=== PATIENT | male | born 1955 | race Caucasian/White ===

== ENCOUNTER 2018-11-15 09:11 | Observation (INO) | payer OTHER ==
--- NOTE | 2018-11-15 06:17 | PDHPUP ---
History & Physical Update H&P update statement: This history and physical update is based on an assessment of the patient which was completed after admission or registration (within 24 hours), but prior to the surgery/procedure. H&P update: H&P reviewed & patient examined, no change in patient's condition since H&P completed
--- NOTE | 2018-11-15 08:13 | PDANEPAE ---
ANE History of Present Illness cervical stenosis ANE Past Medical History - Cardiovascular History Hx Hypertension: Yes Hx Arrhythmias: No Hx Chest Pain: No Hx Coronary Artery / Peripheral Vascular Disease: No Hx CHF / Valvular Disease: No Hx Palpitations: No - Pulmonary History Hx COPD: No Hx Asthma/Reactive Airway Disease: No Hx Recent Upper Respiratory Infection: No Hx Oxygen in Use at Home: No Hx Sleep Apnea: No Sleep Apnea Screening Result - Last Documented: Positive - Neurologic History Hx Cerebrovascular Accident: No Hx Seizures: No Hx Dementia: No - Endocrine History Hx Diabetes: No Hypothyroid: No Hyperthyroid: No Obesity: no - Renal History Hx Renal Disorders: No - Liver History Hx Hepatic Disorders: No - Neurological & Psychiatric Hx Hx Neurological and Psychiatric Disorders: Yes Neurological / Psychiatric History Comment: pain radiates to shoulder and elbow. numbness/tingling left arm - Cancer History Hx Cancer: Yes Cancer History Comment: prostate - Congenital Disorder History Hx Congenital Disorders: No - GI History GERD: mild Hx Gastrointestinal Disorders: Yes Gastrointestinal History Comment: acid reflux - Other Health History Other Health History: none - Chronic Pain History Chronic Pain: No - Surgical History Prior Surgeries: none ANE Review of Systems Review of systems is: negative Review of Systems: - Exercise capacity Exercise capacity: >=4 METS METS (RN): 4 METS ANE Patient History - Allergies Allergies/Adverse Reactions: adhesive tape Allergy (Verified 11/06/18 17:10) Other-Enter Comments latex [Latex] Allergy (Verified 12/29/17 16:19) Hives - Home Medications Home medications: home medication list seen and reviewed Home Medications: Gabapentin [Neurontin 300 MG (*)] 600 mg PO TID@09,12,18 12/29/17 [Last Taken Unknown] Lisinopril [Zestril 10 mg (*)] 10 mg PO HS 12/29/17 [Last Taken Unknown] oxyCODONE/APAP 5/325 [Percocet 5/325 (*)] 1 tab PO QID 12/29/17 [Last Taken Unknown] Atorvastatin Calcium [Lipitor 20 mg (*)] 20 mg PO DAILY 11/03/18 [Last Taken Unknown] Gabapentin [Neurontin 300 MG (*)] 900 mg PO HS 11/03/18 [Last Taken Unknown] Herbals/Supplements -Info Only 1 ea PO DAILY 11/03/18 [Last Taken Unknown] MIRTAZAPINE [Remeron 7.5 mg] 15 mg PO HS 11/03/18 [Last Taken Unknown] - NPO status NPO Status: no food or drink >8 hours - Anes Hx Anes Hx: post operative nausea and vomiting - Smoking Hx Smoking Status: Never smoked - Family Anes Hx Family Hx Anesthesia Complications: none ANE Labs/Vital Signs - Vital Signs Height: 175.26 cm Weight: 79.379 kg ANE Physical Exam - Airway Neck exam: FROM Mallampati Score: Class 3 Mouth exam: normal dental/mouth exam - Pulmonary Pulmonary: no respiratory distress - Cardiovascular Cardiovascular: regular rate and rhythym - ASA Status ASA Status: II ANE Anesthesia Plan Anesthesia Plan: general endotracheal anesthesia
[~2018-11-15 09:11] MED LIST: BACITRACIN 50,000 UNITS/10 ML SYR IRR ONE; BUPIVACAINE/EPI 0.25% 30 ML SDV ONE; CHLORHEXIDINE GLUC HIBICLENS 118 ML BTL TP ONE; MIDAZOLAM 2 MG/2 ML VIAL IVP ONE; THROMBIN (BOVINE) 5,000 UNIT VIAL TP ONE
[2018-11-15] MEDS ORDERED: PROPOFOL/EMULSION 500 MG/50 ML BOTTLE IV ONE ×3 (09:45→12:39)
[2018-11-15] MEDS ORDERED: PROPOFOL 200 MG/20 ML VIAL ONE ×3 (09:45→11:50)
[2018-11-15] MEDS ORDERED: ROCURONIUM 50 MG/5 ML VIAL ONE (09:48)
[2018-11-15] MEDS ORDERED: LIDOCAINE 2% 5 ML SDV ONE (09:49)
[2018-11-15] MEDS ORDERED: GABAPENTIN 300 MG CAP PO ONE (10:00)
[2018-11-15] MEDS ORDERED: ACETAMINOPHEN 500 MG TAB PO ONE (10:00)
[2018-11-15] MEDS ORDERED: ceFAZolin 2 GM/DEXTROSE 100 ML IV ONE (10:00)
[2018-11-15] MEDS ORDERED: LR 1,000 ML IV ONE (10:02)
[2018-11-15] MEDS ORDERED: LIDOCAINE 1% 2 ML INJ ID PRN (10:05)
[2018-11-15] MEDS ORDERED: HYDROmorphONE/DILAUDID 1 MG/ML INJ IVP PRN (10:15)
[2018-11-15] MEDS ORDERED: diphenhydrAMINE 25 MG CAP PO PRN (10:15)
[2018-11-15] MEDS ORDERED: NS 1,000 ML IV SCH (10:15)
[2018-11-15] MEDS ORDERED: POLYETHYLENE GLYCOL 3350 17 GM PKT PO PRN (10:15)
[2018-11-15] MEDS ORDERED: MAGNESIUM HYDROXIDE 30 ML UDCUP PO PRN (10:15)
[2018-11-15] MEDS ORDERED: ONDANSETRON DISINTEGRATING 4 MG TAB PO PRN (10:15)
[2018-11-15] MEDS ORDERED: LACTULOSE 20 GM/30 ML UDCUP PO PRN (10:15)
[2018-11-15] MEDS ORDERED: ONDANSETRON 4 MG/2 ML VIAL IVP PRN ×2 (10:15→12:00)
[2018-11-15] MEDS ORDERED: METHOCARBAMOL 750 MG TAB PO PRN (10:15)
[2018-11-15] MEDS ORDERED: BISACODYL 10 MG SUPP PR PRN (10:15)
[2018-11-15] MEDS ORDERED: MIDAZOLAM 2 MG/2 ML VIAL ONE (10:17)
[2018-11-15] MEDS ORDERED: SCOPOLAMINE HYDROBROMIDE 1 MG/3 DAYS PATCH TD ONE ×2 (10:19→10:23)
[2018-11-15] MEDS ORDERED: fentaNYL 100 MCG/2 ML INJ ONE ×2 (10:26→11:07)
[2018-11-15] MEDS ORDERED: ePHEDrine SULFATE 25 MG/5 ML SYR ONE (10:52)
[2018-11-15] MEDS ORDERED: PHENYLEPHRINE HCL 100 MCG/ML SYR ONE ×2 (10:52→12:46)
[2018-11-15] MEDS ORDERED: ONDANSETRON 4 MG/2 ML VIAL ONE (11:18)
[2018-11-15] MEDS ORDERED: DEXAMETHASONE 4 MG/ML VIAL ONE (11:18)
[2018-11-15] MEDS ORDERED: DEXAMETHASONE 4 MG/ML VIAL IVP PRN (12:00)
[2018-11-15] MEDS ORDERED: METOCLOPRAMIDE 10 MG/2 ML VIAL IVP PRN (12:00)
[2018-11-15] MEDS ORDERED: LR 500 ML IV PRN (12:00)
[2018-11-15] MEDS ORDERED: PHENYLEPHRINE HCL 100 MCG/ML SYR IVP PRN (12:00)
[2018-11-15] MEDS ORDERED: fentaNYL 100 MCG/2 ML INJ IVP PRN (12:00)
[2018-11-15] MEDS ORDERED: oxyCODONE IR 5 MG TAB PO PRN (12:00)
[2018-11-15] MEDS ORDERED: PROMETHAZINE HCL 25 MG/ML INJ IVP PRN (12:00)
[2018-11-15] MEDS ORDERED: NALOXONE HCL 0.4 MG/ML INJ IVP PRN (12:00)
[2018-11-15] MEDS ORDERED: ALBUTEROL 3 ML DEYVIAL IH PRN (12:00)
[2018-11-15] MEDS ORDERED: MEPERIDINE 25 MG/0.5 ML AMP IVP PRN (12:00)
[2018-11-15] MEDS ORDERED: LABETALOL HCL 5 MG/ML 20 ML MDV IVP PRN (12:00)
--- NOTE | 2018-11-15 14:06 | POSTOPPROG ---
Post Op Note Date of Operation: 11/15/18 Surgeon: Vandana Chaidez Chief Building Inspector: SOCORRO Sandoval Anesthesiologist: MD Karley Anesthesia: GET(General Endotracheal), Local (Specify) Pre-op Diagnosis: cervical stenosis C6/7 Post-op Diagnosis: cervical stenosis C6/7 Indication: UE pain, stenosis on MRI, ASD Procedure: removal of hardware at C6 with new ACDF C6/7 Findings: see op report Inf/Abcess present in the surg proc area at time of surgery?: No Depth: Deep Incisional (Fascial) EBL: 50-100 Total fluids administered: see anesthesia record Complications: none Bowel Protocol: Yes Clean Closure Performed: Yes
--- NOTE | 2018-11-15 14:09 | SOAPPROG ---
SOAP Progress Note Assessment/Plan: Post Op Visit: S: Awake and alert. Pt with some expected neck pain. O: AFVSS/PERRLA/EOMI no droop CN 2-12 grossly intact +lt touch 5/5 BUE/BLE = CDI A/P: 62 yo male that is s/p removal of hardware at C6 with new ACDF C6/7 -orders in place -collar at all times -post op xrays pending in am -PT/OT/ST ordered -warning signs given -pt seen by Dr Chaidez as well Objective: Vital Signs Temp Pulse Resp BP Pulse Ox 36.9 C 60 9 L 131/88 H 94 11/15/18 10:06 11/15/18 10:06 11/15/18 10:06 11/15/18 10:06 11/15/18 10:06 ICD10 Worksheet Patient Problems: Problems Problem Status Onset Cervical stenosis of spine Acute Fusion of spine of cervical region Acute - ICD10 Problem Qualifiers (1) Cervical stenosis of spine (2) Fusion of spine of cervical region
[2018-11-15] MEDS ORDERED: HYDROmorphONE/DILAUDID 1 MG/ML INJ ONE (14:32)
[2018-11-15] MEDS: HYDROmorphONE/DILAUDID 1 MG/ML INJ IVP PRN ×3 (14:34→15:23)
--- NOTE | 2018-11-15 15:11 | POSTANESTH ---
Post Anesthetic Evaluation Cardiovascular Status: Normal, Stable Respiratory Status: Normal, Stable Level of Consciousness/Mental Status: Can Participate in Eval Pain Control: Adequate, Prn Tx Ordered Nausea/Vomiting Control: Adequate, Prn Tx Ordered Complications Possibly Related to Anesthesia: None Noted
[2018-11-15] MEDS: ATORVASTATIN CALCIUM 20 MG TAB PO SCH (15:17)
[2018-11-15] MEDS: GABAPENTIN 300 MG CAP PO SCH ×3 (15:17→18:16)
[2018-11-15] MEDS: ACETAMINOPHEN 500 MG TAB PO SCH ×2 (15:21→22:05)
[2018-11-15] MEDS: oxyCODONE IR 5 MG TAB PO PRN ×3 (15:39→19:57)
--- NOTE | 2018-11-15 15:59 | GOP ---
[f rep st] OPERATIVE REPORT DATE OF OPERATION: 11/15/2018 SURGEON: Renetta Chaidez MD NEUROSURGEON: Renetta Chaidez MD BACK END DEVELOPER: Manish Sandoval PA-C PREOPERATIVE DIAGNOSIS: Cervical spondylosis with left greater than right cervical radiculopathy, C6 -7 cervical stenosis. POSTOPERATIVE DIAGNOSIS: Cervical spondylosis with left greater than right cervical radiculopathy, C 6-7 cervical stenosis. PROCEDURE PERFORMED: Removal anterior cervical hardware at C6, anterior cervical diskectomy with dec ompression and fusion C6-7 (07524), placement of biomechanical intervertebral device C6-7 (24123), sa me-incision bone graft harvest, microscope, anterior cervical instrumentation C6-7 (69810). FINDINGS: ESTIMATED BLOOD LOSS: 25 cc. INDICATIONS: The patient is a middle-aged gentleman with a prior history of a 2-level cervical fusio n at C4-5, C5-6. He later went on to develop symptomatic cervical stenosis at C3-4, and most recentl y had surgery with a single-level ACDF at that level. These were both successful surgeries, but over the last several months, he has developed increasing symptoms on the left in the C7 distribution, an d an MRI demonstrated compression of the exiting C7 nerve root. I suggested a single-level ACDF at C 6-7, and we discussed partial removal of the plate and hardware at C4-5, 5-6. Did not intend to margaret ve all of the plate, but I thought we could remove the inferiormost portion of the plate to allow dang cement of a new plate at C6-7. He had already had 2 prior cervical procedures, and I discussed with him the risk of vocal cord paralysis, dysphagia, esophageal injury, carotid injury, recurrent larynge al nerve injury. He understood these risks and he did want to proceed. He knew there was a chance o f nerve injury and spinal cord injury as well as a possible failure of the surgery to alleviate his s ymptoms, and he wanted to proceed despite those risks. DESCRIPTION OF PROCEDURE: The patient was taken to the operating room, placed in the supine position . General anesthesia was begun. A midline shoulder roll was placed. Care was taken to pad all poin ts of contact. His neck was kept relatively neutral with the occiput extended. Localizing x-ray was taken. He was sterilely prepped and draped in the usual fashion. I did shoot localizing x-rays and was contemplating a left versus right incision. His C4-5, 5-6 surgery been done from the right side . The C3-4 surgery had been done from the left-hand side, and I elected to go on the left-hand side. This would give the greatest distance from the prior surgery at C3-4 down to the new surgical disse ction, and I thought this was the safest approach. He was sterilely prepped and draped. We made a t ransverse incision along the inferior portion of the neck on the left-hand side. The subcutaneous ti ssue was dissected using Bovie cautery down through the platysma. We then used a combination of benjie p and blunt dissection to work our way medial to the sternocleidomastoid and lateral to the strap mus cles down the prevertebral space. The exposure of the prevertebral space was relatively straightforw bryson. When I got to the prevertebral space, however, the esophagus was really pretty firmly adherent to the prior plate at C6, but interestingly, there was significant esophageal adhesions tracking all the way down into the upper thoracic spine. I did begin mobilizing the esophagus in front of T1 and the lower C7 vertebral body which was useful in finding a good plane between the esophagus and the pr evertebral fascia. We were able to mobilize it, but it took considerable time, and we worked our way up to the prior plate. When I got to the plate, I did expose it, and the plate appeared short enoug h that I could put a new plating system at C6-7 without complete removal of the plate already going d own the C6. I was most concerned with placement of a distraction pin and I, therefore, exposed the l eft-sided inferior C6 screw, and we had the Aesculap remover for that screw, and we removed the screw without much difficulty. I did not see a reason to remove the right-sided screw, but we did expose the entire plate at that level. There was significant spondylosis and osteophytosis at C6-7. We dang sandeep a distraction pin in the C7 vertebral body and distracted between C6 and C7. There was not a lot of motion at that level. We incised the C6-7 disk, and under the microscope, we removed the disk an d the cartilaginous endplates completely. We drilled down until we got down close to the posterior l ongitudinal ligament, and then I drilled a large amount of subchondral bone for autologous grafting p urposes, and I had a nice amount of bone for that purpose. I then took a 7 mm lordotic PEEK interver tebral device spacer and sized the space and then, ultimately, chose to get an 8 mm device. We then turned our attention to the decompression itself, and under the operating microscope, we exposed the epidural space and removed the posterior wall of the C6-7 disk and the posterior longitudinal ligamen t. We decompressed from left to right, and we were able to decompress all the way into the right-juan ed neural foramen from our left-sided approach. We did a more extensive decompression ipsilaterally on the left-hand side at C6-7 and decompressed the exiting C7 nerve root all the way out beyond the p edicle of C7. We had a great decompression. There was really no significant bleeding at all during the surgery. The only difficulty we had was mobilization of the esophagus. I had mobilized the esop hagus only where needed, and I was able to get a contralateral decompression at C6-7, but I did not w ant to remove the entire plate because of the problems with the esophagus itself. I did not want to cause injury to it. I, therefore, drilled off the osteophyte coming off C6 above the plate at C6 and then prepped the C7 vertebral body for acceptance of the plate, and I chose a 21 mm plate. I had ro om to mount the screws at both C6 and C7 without complete removal of the prior plate above, but the n ew plate would be sitting on the lip of the old plate. Looking at x-ray and after drilling off the o steophytes, however, this appeared to be really the true location of the ventral vertebral body at C6 , and I was very happy with the fit of the device. We also biased the device slightly to the patient 's left-hand side because of the difficulty with exposures. I was more comfortable not mobilizing th e esophagus further to get the plate perfectly centered. The other reason for this is that it allowe d us to put the plate offset to the left, allowed us to get the screws such that there was a little b it more room for these screws between the inferior lip of the L plate, that they fit together in a to ngue and groove type fashion. I put 2 screws in and shot an x-ray. I was happy with the positioning of the hardware, and I put the 2 remaining screws in. I then locked the screws according to company specification. We then assured there was meticulous hemostasis throughout the dissection and then c losed the incision with interrupted Vicryl sutures in the platysma. We then used interrupted Vicryl sutures in the skin. Steri-Strips were applied. The patient was reversed from anesthesia, extubated , and transferred to recovery room in stable condition. There were no complications. COMPLICATIONS: None. INSTRUMENTATION USED: [employer] 21 mm Zevo plate at C6-7 with an 8 x 16 x 14 anatomic PTC cage packe d with bone autograft. We used 3.5 x 15 mm screws, and they were all locked according to [employer] spe cification. /[id number]/MODL
[2018-11-15] MEDS: ceFAZolin 2 GM/DEXTROSE 100 ML IV SCH (18:53)
[2018-11-15] MEDS: SENNOSIDES/DOCUSATE SODIUM TAB PO SCH (19:52)
[2018-11-15] MEDS: FAMOTIDINE 20 MG TAB PO SCH (19:53)
[2018-11-15] MEDS ORDERED: MIRTAZAPINE 15 MG TAB PO SCH (21:00)
[2018-11-15] MEDS ORDERED: LISINOPRIL 10 MG TAB PO SCH (21:00)
[2018-11-15] MEDS ORDERED: GABAPENTIN 300 MG CAP PO SCH (21:00)
[2018-11-16] MEDS: oxyCODONE IR 5 MG TAB PO PRN ×3 (00:01→09:35)
[2018-11-16] MEDS: ceFAZolin 2 GM/DEXTROSE 100 ML IV SCH (02:48)
[2018-11-16] MEDS: ACETAMINOPHEN 500 MG TAB PO SCH (05:33)
--- NOTE | 2018-11-16 07:34 | NEUSURGPN ---
Date of Surgery: 11/15/18 Post Op Day: 1 Assessment/Plan: Assessment: 62 yo male that is s/p removal of hardware at C6 with new ACDF C6/7 POD #1 Plan: -s/p ACDF C6/7: pt doing well this am with some expected neck pain -swallowing ok -collar-soft in bed and hard collar when out of bed and up/around -post op xrays pending this am -PT/OT/ST pending -call with any questions or concerns -warning signs given -pt seen by Dr Chaidez as well -plan for dc later this am Subjective: Awake and alert. NAD. Eating/drinking and voiding. No f/c/n/v/d. No nielsen/cp/ sob/abd or gu complaints. Objective: AFVSS/PERRLA/EOMI no droop CN 2-12 grossly intact +lt touch 5/5 BUE/BLE = CDI Neuro Check Frequency: per routine Urinary Catheter in Place: No - Physician Discussed Patient with Dr.: Dm Patient Seen by : Dm Neurosurgery Physical Exam - Vitals, I&O, Labs I and O 11/15/18 11/16/18 11/17/18 05:59 05:59 05:59 Intake Total 1775 Output Total 225 Balance 1550 Weight 79.379 kg Intake: Oral (ml) 125 IV Intake (ml) 1150 IV Infused (ml) 500 Ns 1,000 ml @ 75 mls/hr 300 IV CONT JAQUELIN Rx#: [id number] ceFAZolin 2 GM/DEXTROSE 200 100 ml @ 200 mls/hr IV ONCALL ONE Rx#:[id number] Output: Urine (ml) 200 Urinal 200 Estimated Blood Loss (ml) 25 Other: Number of Voids Toilet 1 Urinal 1 Vital Signs Temp Pulse Resp BP Pulse Ox 36.6 C 69 17 124/72 H 91 L 11/16/18 04:00 11/16/18 04:00 11/16/18 04:00 11/16/18 04:00 11/16/18 04:00 ICD10 Worksheet Patient Problems: Problems Problem Status Onset Cervical stenosis of spine Acute Fusion of spine of cervical region Acute - ICD10 Problem Qualifiers (1) Cervical stenosis of spine (2) Fusion of spine of cervical region
[2018-11-16 07:39] VITALS: BP 121/71
[2018-11-16] MEDS: GABAPENTIN 300 MG CAP PO SCH (09:01)
[2018-11-16] MEDS: SENNOSIDES/DOCUSATE SODIUM TAB PO SCH (09:02)
[2018-11-16] MEDS: ATORVASTATIN CALCIUM 20 MG TAB PO SCH (09:02)
[2018-11-16] MEDS: FAMOTIDINE 20 MG TAB PO SCH (09:02)
[2018-11-16] MEDS ORDERED: PATCH REMOVAL 1 EA PATCH TD ONE (10:23)
--- NOTE | 2018-11-16 12:22 | ASMTLACE ---
LACE Length of stay for Answers: 2 days current admission Acuity / Level of Answers: No Care: Did the patient have an inpatient admission? Comorbidities - select Answers: Any tumor (including all that apply lymphoma or leukemia) Other Notes: HTN # of Emergency department Answers: 0 visits in the last 6 months Score: 5 Date Signed: 11/16/2018 12:21 PM Electronically Signed By:TIMA Cisneros
--- NOTE | 2018-11-16 12:24 | ASMTCMCOM ---
CM Note CM Note Notes: Pt had planned surgery for cervical stenosis. Pt resides with spouse. OT/PT/PERIPHERAL VASCULAR TECH rec home. Pt medically stable for d/c, no CM d/c needs identified. Date Signed: 11/16/2018 12:23 PM Electronically Signed By:TIMA Cisneros
[2018-11-18] MEDS ORDERED: ENOXAPARIN 40 MG/0.4 ML SYR SC SCH (09:00)
== END 2018-11-16 12:02 | disposition home or self-care (01) ==
LOC: F3N 09:11
PROVIDERS: ADMIT Neurological Surgery; ATTEND Neurological Surgery
DX: M48.02 Spinal stenosis, cervical region (principal); M47.22 Other spondylosis with radiculopathy, cervical region; Z98.1 Arthrodesis status
CPT/HCPCS: 22551; 22845; 22853; 72040; 76000; 92610; 97161; 97165; G0378; C1713; J0690; J1100; J1170; J2250; J2270; J2370; J2405; J2704; J3010